=== PATIENT | female | born 1990 | race African-American/Black ===

== ENCOUNTER 2020-02-21 03:00 | Observation (INO) | payer MEDICAID ==
[~2020-02-21] VITALS: Ht 160 cm; Wt 127.3 kg
[2020-02-21 03:05] VITALS: BP 121/77
[2020-02-21] MEDS ORDERED: [UNRECOGNIZED DRUG - REMARK] (03:10)
[2020-02-21 03:30] VITALS: BP 115/83
--- NOTE | 2020-02-21 03:30 | NUR ---
PATIENT IN VIA POV WITH C/O HAVING AN ALLERGIC REACTION TO SHRIMP, HAVING SOB, SWELLING TO LIPS, PATIENT ALERT HAVING TROUBLE TALKING. PATIENT TAKEN TO TRAUMA ROOM, MD @ BEDSIDE.
--- NOTE | 2020-02-21 03:57 | NUR ---
PATIENT SITTING UP ON STRETCHER TALKING ON THE PHONE, STATES SHE FEELS [place] MUCH BETTER. VITAL SIGNS STABLE, CALL LIGHT WITHIN REACH.
[2020-02-21 04:03] VITALS: BP 111/79
[2020-02-21 05:07] VITALS: BP 127/69
--- NOTE | 2020-02-21 05:08 | NUR ---
PATIENT RESTING QUIETLY AT THIS TIME, C/O HEADACHE AND ITCHING, MED GIVEN, MD NOTIFIED. PATIENT TO BE ADMITTED.
--- NOTE | 2020-02-21 05:21 | NUR ---
REPORT RECEIVED, PT CARE ASSUMED. AWAITING PT'S ARRIVAL TO ROOM 2120.
[2020-02-21 05:24] LABS: BASOPHILS 0.1 % (0-2); EOSINOPHILS 1.8 % (0-7); HEMATOCRIT 39.6 % (36.0-48.0); IMMATURE GRANULOCYTES 0.3 % (0-5); LYMPHOCYTES 19.4 % (15-50); MCH 31.6 pg (26.0-34.0); MCHC 32.8 g/dL (31.0-37.0); MCV 96.1 fL (80.0-100.0); MEAN PLATELET VOLUME 10.7 fL (7.4-10.4); MONOCYTES 3.9 % (2-11); NEUTROPHILS 74.5 % (40-80); PLATELET COUNT 253 10x3/uL (130-400); RBC 4.12 10x6/uL (4.00-5.40); RDW 14.1 % (11.5-14.5); WBC 6.7 10x3/uL (4.8-10.8)
[2020-02-21 05:39] LABS: CALC OSMOLALITY 271 mosm/kg (275-300); CALCIUM 8.8 mg/dL (8.5-10.1); CARBON DIOXIDE 26.2 mmol/L (21.0-32.0); CHLORIDE - SERUM 103 mmol/L (98-107); GLUCOSE 102 mg/dL (74-106); POTASSIUM - SERUM 4.1 mmol/L (3.5-5.1); SODIUM 136 mmol/L (136-145); UREA NITROGEN 13 mg/dL (7-18); eGFR NON AFRICAN AMERICAN 69 mL/min (90-120)
[2020-02-21 05:49] LABS: HCG SERUM NEGATIVE (NEGATIVE)
[2020-02-21 06:01] VITALS: BP 121/89; Ht 160 cm; Wt 127.3 kg
[2020-02-21 06:04] LABS: ALBUMIN 3.5 g/dL (3.4-5.0); ALKALINE PHOSPHATASE 56 U/L (30-120); ALT (SGPT) 21 U/L (10-68); CREATINE KINASE 293 UL (21-215); PRO BNP 106 pg/mL (0-125); PROTEIN - SERUM 7.2 g/dL (6.4-8.2); TROPONIN-I < 0.017 ng/mL (0.000-0.060)
--- NOTE | 2020-02-21 07:20 | NUR ---
RECIEVE REPORT. ALERT AND ORIENTED X4. RESTING IN BED. NO SIGNS OF DISTRESS. CONTINUE PLAN OF CARE AND SAFETY PRECAUTIONS.
[2020-02-21 10:35] VITALS: BP 153/103
--- NOTE | 2020-02-21 11:56 | NUR ---
ALERT AND ORIENTED X4. SITTING UP IN BED. DEMANDING PAPERS TO LEAVE. ENCOURAGE TO WAIT FOR DOCTOR BEFORE LEAVING. PAGE LIZA CANTU.
[2020-02-21] MEDS ORDERED: EPIPEN 2-P0.3 MG/0.3 IM (12:00)
[2020-02-21] MEDS ORDERED: NORVASC5 MG PO (12:01)
--- NOTE | 2020-02-21 13:29 | NUR ---
ALERT AND ORIENTED X4. DC RT AC IV TIP INTACT. DISCHARGE INSTRUCTIONS GIVEN VERBALLY AND WRITTEN. DISCHARGE PAPERS SIGNED ON CHART. ESCORT TO RIDE VIA WHEELCHAIR. REMAINS FREE FROM INJURY.
== END 2020-02-21 13:30 | disposition home or self-care (01) ==
LOC: D.ER 03:00 → D.M2 04:44 → OBSVTIME 04:44 → D.M2 13:30
PROVIDERS: Family Medicine; ADMIT Family Medicine; ATTEND Family Medicine
DX: T78.02XA Anaphylactic reaction due to shellfish (crustaceans), initial encounter (principal); G92 Toxic encephalopathy; T45.0X5A Adverse effect of antiallergic and antiemetic drugs, initial encounter; I10 Essential (primary) hypertension; Z72.0 Tobacco use